=== PATIENT | male | born 1950 | race Caucasian/White ===

== ENCOUNTER 2019-09-24 11:33 | Outpatient (CLI) | payer MEDICARE, SELFPAY ==
[2019-09-24 12:40] LABS: Basophils Percent Auto 0.3 % (0.2-1.2); Eosinophils Absolute Auto 0.1 K/mm3 (0-0.3); Eosinophils Percent Auto 1.8 % (0-4.4); Hemoglobin 15.8 g/dL (14.0-18.0); Immature Granulocyte Absolute 0.02 K/mm3 (0.00-0.031); Immature Granulocyte Percent A 0.3 % (0-0.5); Immature Platelet Fraction Pct 4.2 % (0.9-11.2); Lymphocytes Absolute Auto 1.94 K/mm3 (0.9-3.2); Lymphocytes Percent Auto 31.4 % (18.3-44.2); Mean Corpuscular HGB Conc 34.3 g/dl (32-36); Mean Corpuscular Hemoglobin 31.4 pg (26-34); Mean Corpuscular Volume 91.5 fl (80-100); Mean Platelet Volume 10.6 fl (7.4-10.4); Monocytes Absolute Auto 0.4 K/mm3 (0.1-0.6); Monocytes Percent Auto 6.3 % (2.6-8.5); Neutrophils Absolute Auto 3.7 K/mm3 (1.3-6.7); Neutrophils Percent Auto 59.9 % (45.5-73.1); Platelet Count Result 109 k/mm3 (150-375); Red Blood Count 5.03 M/mm3 (4.6-6.20); Red Cell Distribution Width 13.1 % (11.5-14.5); White Blood Count 6.2 K/mm3 (4.5-10.0)
[2019-09-24 12:47] LABS: INR 1.1; Prothrombin Time 13.8 Seconds (11.1-14.7)
[2019-09-24 12:48] LABS: Partial Thromboplastin Time 31.9 SECONDS (22.3-36.8)
[2019-09-24 12:52] LABS: Alanine Aminotransferase 63 U/L (4-50); Alkaline Phosphatase 158 U/L (38-126); Aspartate Amino Transferase 76 U/L (17-59); Bilirubin,Total 0.4 mg/dL (0.2-1.3); Blood Urea Nitrogen 12 mg/dL (9-20); Calcium 8.9 mg/dL (8.4-10.2); Carbon Dioxide 27 mmol/L (22-30); Chloride 101 mmol/L (98-107); Estimated Glomerular Filt Rate > 60; Glucose 160 mg/dL (75-110); Potassium 3.7 mmol/L (3.4-5.0); Sodium 134 mmol/L (137-145)
[2019-09-24 14:17] LABS: Creatinine Urine 72.2 mg/dL; Total Protein Urine Random 10 mg/dL
[2019-09-29 19:30] LABS: Hepatitis C Viral RNA PCR 4680000 IU/mL
[2019-10-02 12:36] LABS: HCV Genotype, LiPA 1b
== END 2019-09-24 11:34 | disposition home or self-care (01) ==
PROVIDERS: PCP Family Medicine; Visit Provider Internal Medicine Nephrology
DX: B17.10 Acute hepatitis C without hepatic coma (principal); G47.00 Insomnia, unspecified; F17.200 Nicotine dependence, unspecified, uncomplicated; L03.811 Cellulitis of head [any part, except face]; M06.00 Rheumatoid arthritis without rheumatoid factor, unspecified site; E50.8 Other manifestations of vitamin A deficiency
CPT/HCPCS: 36415; 80053; 82570; 84156; 85025; 85055; 85610; 85730; 86038; 87522; 87902